=== PATIENT | female | born 1930 | race Caucasian/White ===

== ENCOUNTER 2019-07-31 17:43 | Emergency (ER) | payer OTHER ==
[~2019-07-31] VITALS: Ht 162.6 cm; Wt 72.3 kg
[2019-07-31 18:04] VITALS: Ht 162.6 cm; Wt 72.3 kg
[2019-07-31 19:14] LABS: CALCIUM 8.8 mg/dL (8.5-10.1); CARBON DIOXIDE 22.4 mmol/L (21-32); CHLORIDE SERUM 102 mmol/L (98-107); CREATININE SERUM 2.3 mg/dL (0.6-1.0); GLUCOSE SERUM 110 mg/dL (74-106); POTASSIUM SERUM 4.7 mmol/L (3.5-5.1); SODIUM SERUM 136 mmol/L (136-145)
[2019-07-31 19:19] LABS: ALKALINE PHOSPHATASE 61 U/L (46-116); ALT/SGPT 11 U/L (14-59); AST/SGOT 18 U/L (15-37); BASOPHIL % 0.4 % (0-2); BILIRUBIN TOTAL 0.28 mg/dL (0.20-1.00); PLATELET COUNT 139 x10^3mcL (130-400); RED CELL DISTRIBUTION WIDTH 14.3 % (11.5-14.5)
[2019-07-31 20:06] VITALS: BP 105/55
== END 2019-07-31 20:06 | disposition home or self-care (01) ==
LOC: ED 17:43
DX: J40 Bronchitis, not specified as acute or chronic (principal); I12.9 Hypertensive chronic kidney disease with stage 1 through stage 4 chronic kidney disease, or unspecified chronic kidney disease; N18.9 Chronic kidney disease, unspecified
CPT/HCPCS: 36415; Q0092